=== PATIENT | female | born 1995 | race Caucasian/White ===

== ENCOUNTER 2017-03-24 20:28 | Emergency (ER) | payer OTHER ==
--- NOTE | 2017-03-24 21:12 | EDM.PDOC ---
ED HPI GENERAL MEDICAL PROBLEM - General Chief Complaint: Upper Extremity Injury/Pain Stated Complaint: FELL INJURING LEFT WRIST/HOOKER Time Seen by Provider: 03/24/17 20:47 Source of Information: Reports: Patient, RN Notes Reviewed, Significant Other ( Boyfriend) History Limitations: Reports: No Limitations - History of Present Illness INITIAL COMMENTS - FREE TEXT/NARRATIVE: The patient states that she was shopping at [employer] around 20:00, when she got caught on a shelf and tripped, falling onto an outstretched left hand. She reports tingling to her left forearm, wrist, and hand. She sustained a scratch to her anterior left leg. She states that she also struck her right elbow and right knee, although there are no visible injuries to these. She also landed onto her left buttock. She is concerned that her left arm is broken, because of the tingling. The patient's PCP is Violeta Juarez, from [place], [place]. Left Arm Pain Score (Numeric/FACES): 7 - Related Data Allergies Allergy/AdvReac Type Severity Reaction Status Date / Time amoxicillin Allergy Hives Verified 03/24/17 20:42 Sulfa (Sulfonamide Allergy Hives Verified 03/24/17 20:42 Antibiotics) Home Meds: Home Meds FLUoxetine [PROzac] 40 mg PO DAILY 03/24/17 [History] Past Medical History HEENT History: Reports: Allergic Rhinitis Musculoskeletal History: Reports: Fibromyalgia Psychiatric History: Reports: Anxiety, Depression - Past Surgical History HEENT Surgical History: Reports: Adenoidectomy, Myringotomy w Tube(s) (bilateral ), Oral Surgery (Cardinal teeth extraction) Social & Family History - Tobacco Use Smoking Status *Q: Never Smoker Second Hand Smoke Exposure: No - Caffeine Use Caffeine Use: Reports: Coffee, Soda, Tea - Alcohol Use Alcohol Use History: Yes Alcohol Use Frequency: Socially - Recreational Drug Use Recreational Drug Use: No - Living Situation & Occupation Living situation: Reports: Single, with Significant Other (Boyfriend) 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) ED ROS GENERAL - Review of Systems Review Of Systems: See Below Constitutional: Reports: No Symptoms HEENT: Reports: No Symptoms Respiratory: Reports: No Symptoms Cardiovascular: Reports: No Symptoms Endocrine: Reports: No Symptoms GI/Abdominal: Reports: No Symptoms : Reports: No Symptoms Musculoskeletal: Reports: No Symptoms Skin: Reports: No Symptoms Neurological: Reports: No Symptoms Psychiatric: Reports: No Symptoms Hematologic/Lymphatic: Reports: No Symptoms Immunologic: Reports: No Symptoms ED EXAM, GENERAL - Physical Exam Exam: See Below Exam Limited By: No Limitations General Appearance: Alert, WD/WN, No Apparent Distress Eye Exam: Bilateral Eye: Normal Inspection Ears: Normal External Exam, Hearing Grossly Normal Nose: Normal Inspection, No Blood Throat/Mouth: Normal Inspection, Normal Lips, Normal Voice, No Airway Compromise Head: Atraumatic, Normocephalic Neck: Normal Inspection, Full Range of Motion Respiratory/Chest: No Respiratory Distress, Lungs Clear, Normal Breath Sounds, No Accessory Muscle Use Cardiovascular: Normal Peripheral Pulses, Regular Rate, Rhythm, No Gallop, No JVD, No Murmur, No Rub Peripheral Pulses: 4+: Radial (L), Radial (R) GI/Abdominal: Normal Bowel Sounds, Soft, Non-Tender, No Organomegaly, No Distention, No Abnormal Bruit, No Mass (Female) Exam: Deferred Rectal (Female) Exam: Deferred Back Exam: Normal Inspection, Full Range of Motion, NT Extremities: Normal Inspection, Normal Range of Motion, Non-Tender, No Pedal Edema, Normal Capillary Refill, Other (No visible abnormality to the left forearm, wrist, or hand, such as swelling, erythema, ecchymosis, or abrasion. While the patient reports some tingling and numbness to that region, there is no tenderness to palpation anywhere along her forearm to her fingers. Full range of motion at the elbow, wrist, with normal supination and pronation. Neurovascular status of the left upper extremity is intact. No visible abnormality to the right elbow, such as swelling, erythema, ecchymosis, or abrasion. No significant tenderness to palpation, and normal range of motion. No visible abnormality to the right knee, such as swelling, erythema, ecchymosis , or abrasion. Normal range of motion at the knee. There is an approximately 6 cm linear scratch to the anterolateral left leg. Sutures are not required. The wound is otherwise clean. Neurovascular status to all extremities is intact.) Neurological: Alert, Oriented, Normal Cognition, No Motor/Sensory Deficits Psychiatric: Normal Affect Skin Exam: Warm, Dry, Intact, Normal Color, No Rash Lymphatic: No Adenopathy Course - Vital Signs Last Recorded V/S: Last Vital Signs Temp 36.8 C 03/24/17 20:43 Pulse 72 03/24/17 20:43 Resp 18 03/24/17 20:43 BP 128/90 03/24/17 20:43 Pulse Ox 99 03/24/17 20:43 - Re-Assessments/Exams Free Text/Narrative Re-Assessment/Exam: 03/24/17 21:07 The patient complains of some tingling and numbness to her left forearm, wrist, and hand, however, there is no visible injury, and no tenderness on palpation. I offered x-rays of the area if the patient desired, but explained that clinically, there are no fractures. The patient declined x-rays. She has a scratch to the anterior left hooker, which requires soap and water, but no suturing. No visible injuries to her right elbow or right knee. I recommended she take [id number] ibuprofen as needed for discomfort. I offered to get her some here, but she declined. Departure - Departure Time of Disposition: 21:08 Disposition: Home, Self-Care 01 Condition: Good Clinical Impression: Fall, Multiple contusions - Discharge Information Instructions: Contusion, [id number], Fall Prevention in the Home Referrals: PCP,Not In Area [Primary Care Provider] - Forms: ED Department Discharge Additional Instructions: You were seen in the emergency room after tripping and falling earlier tonight. On examination, you have a scratch to the front of your left leg, however, clinically, there are no broken bones. X-rays were offered, but declined. Keep the scratch clean with ordinary soap and water. We recommend you take [id number] ibuprofen as needed for discomfort. Your symptoms should rapidly improve. If they do not, please follow-up with your PCP in [place], [place]. If any other problems, please do not hesitate to return to the ER.
== END 2017-03-24 21:15 | disposition home or self-care (01) ==
LOC: JD.ED 20:28
CPT/HCPCS: 99282; 99283